=== PATIENT | female | born 1970 | race Caucasian/White ===

== ENCOUNTER → 2017-02-13 | Outpatient (CLI) | payer OTHER ==
[~2017-02-13] MED LIST: FLEXERIL 1010 MG/TAB PO; MOTRIN 800800 MG/TAB PO; PREMARIN .3MG0.3 MG PO
== END ==
LOC: MC.RAD 07:20
DX: Z12.31 Encounter for screening mammogram for malignant neoplasm of breast (principal)

== ENCOUNTER → 2018-02-26 | Outpatient (CLI) | payer OTHER | LOC: MC.RAD 07:17 | DX: Z12.31 Encounter for screening mammogram for malignant neoplasm of breast (principal) ==

== ENCOUNTER → 2019-03-06 | Outpatient (CLI) | payer OTHER | LOC: MC.RAD 10:30 | DX: Z12.31 Encounter for screening mammogram for malignant neoplasm of breast (principal) ==

== ENCOUNTER → 2019-07-10 | Outpatient (CLI) | payer OTHER | LOC: COL.RAD 07:39 | DX: H53.9 Unspecified visual disturbance (principal); J32.9 Chronic sinusitis, unspecified | CPT/HCPCS: A9585 ==

== ENCOUNTER → 2020-03-08 | Outpatient (CLI) | payer OTHER | LOC: MC.RAD 06:59 | DX: Z12.31 Encounter for screening mammogram for malignant neoplasm of breast (principal) ==

== ENCOUNTER → 2021-03-15 | Outpatient (CLI) | payer OTHER ==
[~2021-03-15] MED LIST changes: +EPA FISH OIL1000 MG PO; +ESTRACE0.5 MG PO; +FLONASEALLERGY NS; +MASON NATURAL2000 IU PO; +METAMUCIL3.4 GM/Dos PO; +PEPCID COMPLETE1 CTB PO; +PROBIOTIC-MAJOR PO; +SINGULAIR 110 MG/TAB PO; +TOPAMAX50 MG PO; +ZYRTEC ALLERGY10 MG PO
== END ==
LOC: MC.RAD 13:21
DX: Z12.31 Encounter for screening mammogram for malignant neoplasm of breast (principal)

== ENCOUNTER 2021-03-17 05:23 | Day surgery (SDC) | payer OTHER ==
[~2021-03-17] VITALS: Ht 162.6 cm; Wt 76.0 kg
[~2021-03-17 05:23] MED LIST changes: -EPA FISH OIL1000 MG PO; -ESTRACE0.5 MG PO; -FLONASEALLERGY NS; -MASON NATURAL2000 IU PO; -METAMUCIL3.4 GM/Dos PO; -PEPCID COMPLETE1 CTB PO; -PROBIOTIC-MAJOR PO; -SINGULAIR 110 MG/TAB PO; -TOPAMAX50 MG PO; -ZYRTEC ALLERGY10 MG PO
[2021-03-17 06:19] VITALS: BP 104/88; PULSE 101; TEMP 98
--- NOTE | 2021-03-17 07:04 | NUR ---
Patient taken to surgery per cart.
[2021-03-17] MEDS ORDERED: FLEXERIL 1010 MG/TAB PO (07:07)
[2021-03-17] MEDS ORDERED: ESTRACE0.5 MG PO (07:08)
[2021-03-17] MEDS ORDERED: MASON NATURAL2000 IU PO (07:08)
[2021-03-17] MEDS ORDERED: FLONASEALLERGY NS (07:09)
[2021-03-17] MEDS ORDERED: METAMUCIL3.4 GM/Dos PO (07:10)
[2021-03-17] MEDS ORDERED: SINGULAIR 110 MG/TAB PO (07:11)
[2021-03-17] MEDS ORDERED: EPA FISH OIL1000 MG PO (07:11)
[2021-03-17] MEDS ORDERED: PEPCID COMPLETE1 CTB PO (07:12)
[2021-03-17] MEDS ORDERED: PROBIOTIC-MAJOR PO (07:13)
[2021-03-17] MEDS ORDERED: ZYRTEC ALLERGY10 MG PO (07:14)
[2021-03-17] MEDS ORDERED: TOPAMAX50 MG PO (07:14)
[2021-03-17 07:42] VITALS: BP 100/56; PULSE 80
--- NOTE | 2021-03-17 07:42 | NUR ---
Patient returns to room 8 per cart from surgery accompanied by Lane CHAPARRO and Yazan RN. Patient is awake and alert. Right hand elevated on pillow and bulky karl wrap dressing clean and dry. Fingers on the right hand pink with good capillary refill. Temp 97.7 and room air sats 99%. Denies pain or nausea. Siderails up x2 and call light in reach. IV fluids infusing.
[2021-03-17 07:57] VITALS: BP 104/73; PULSE 69
--- NOTE | 2021-03-17 07:57 | NUR ---
Drinking water and offered snack. States that she has food prepared at home and wants to eat at home.
[2021-03-17 08:12] VITALS: BP 102/67; PULSE 67
--- NOTE | 2021-03-17 08:12 | NUR ---
IV discontinued and site is free of redness. Right hand dressing remains clean and dry. Assisted to edge of cart and assisted with dressing.
--- NOTE | 2021-03-17 08:35 | NUR ---
Dismissal instructions given and voices understanding of these. Provided written instructions from Dr. Yen's office.
--- NOTE | 2021-03-17 08:38 | NUR ---
Patient dismissed to home driven by family member and taken to the vehicle per wheelchair and assisted into car. Dimissal instructions in hand.
== END 2021-03-17 08:38 | disposition home or self-care (01) ==
LOC: SDCO 05:23
DX: M65.311 Trigger thumb, right thumb (principal); M65.841 Other synovitis and tenosynovitis, right hand; M77.01 Medial epicondylitis, right elbow; K21.9 Gastro-esophageal reflux disease without esophagitis; G25.81 Restless legs syndrome; C92.11 Chronic myeloid leukemia, BCR/ABL-positive, in remission; Z79.899 Other long term (current) drug therapy; Z83.3 Family history of diabetes mellitus; Z80.0 Family history of malignant neoplasm of digestive organs
CPT/HCPCS: J0690; J2250; J2704; J7120